=== PATIENT | male | born 1945 | race Caucasian/White ===

== ENCOUNTER → 2020-02-22 15:45 | Outpatient (CLI) | payer OTHER, MEDICARE | END | disposition home or self-care (01) | LOC: D.LABREF 15:45 | PROVIDERS: ATTEND Family Medicine | DX: M86.079 Acute hematogenous osteomyelitis, unspecified ankle and foot (principal) ==

== ENCOUNTER → 2020-02-29 20:56 | Outpatient (CLI) | payer OTHER, MEDICARE | END | disposition home or self-care (01) | LOC: D.LABREF 20:56 | PROVIDERS: ATTEND Family Medicine | DX: M86.079 Acute hematogenous osteomyelitis, unspecified ankle and foot (principal) ==

== ENCOUNTER → 2020-03-07 17:41 | Outpatient (CLI) | payer OTHER, MEDICARE | END | disposition home or self-care (01) | LOC: D.LABREF 17:41 | PROVIDERS: ATTEND Family Medicine | DX: I25.10 Atherosclerotic heart disease of native coronary artery without angina pectoris (principal); B95.62 Methicillin resistant Staphylococcus aureus infection as the cause of diseases classified elsewhere; I50.32 Chronic diastolic (congestive) heart failure; Z45.2 Encounter for adjustment and management of vascular access device ==

== ENCOUNTER → 2020-03-14 14:45 | Outpatient (CLI) | payer OTHER, MEDICARE | END | disposition home or self-care (01) | LOC: D.LABREF 14:45 | PROVIDERS: ATTEND Family Medicine | DX: M86.8X7 Other osteomyelitis, ankle and foot (principal) ==

== ENCOUNTER → 2020-03-21 18:18 | Outpatient (CLI) | payer OTHER, MEDICARE | END | disposition home or self-care (01) | LOC: D.LAB 18:18 | PROVIDERS: ATTEND Family Medicine | DX: M86.8X7 Other osteomyelitis, ankle and foot (principal); B95.62 Methicillin resistant Staphylococcus aureus infection as the cause of diseases classified elsewhere; Z79.01 Long term (current) use of anticoagulants ==

== ENCOUNTER → 2020-03-28 16:18 | Outpatient (CLI) | payer OTHER, MEDICARE | END | disposition home or self-care (01) | LOC: D.LAB 16:18 | PROVIDERS: ATTEND Family Medicine | DX: M86.8X7 Other osteomyelitis, ankle and foot (principal) ==

== ENCOUNTER → 2020-04-04 19:30 | Outpatient (CLI) | payer OTHER, MEDICARE | END | disposition home or self-care (01) | LOC: D.LABREF 19:30 | PROVIDERS: ATTEND Orthopaedic Surgery | DX: M86.8X7 Other osteomyelitis, ankle and foot (principal); B95.62 Methicillin resistant Staphylococcus aureus infection as the cause of diseases classified elsewhere; Z79.2 Long term (current) use of antibiotics ==

== ENCOUNTER → 2020-04-11 22:46 | Outpatient (CLI) | payer OTHER, MEDICARE | END | disposition home or self-care (01) | LOC: D.LABREF 22:46 | PROVIDERS: ATTEND Family Medicine | DX: M86.8X7 Other osteomyelitis, ankle and foot (principal) ==

== ENCOUNTER → 2020-04-18 14:08 | Outpatient (CLI) | payer OTHER, MEDICARE | END | disposition home or self-care (01) | LOC: D.LAB 14:08 | PROVIDERS: ATTEND Family Medicine | DX: M86.8X7 Other osteomyelitis, ankle and foot (principal); Z79.1 Long term (current) use of non-steroidal anti-inflammatories (NSAID); B95.62 Methicillin resistant Staphylococcus aureus infection as the cause of diseases classified elsewhere ==